=== PATIENT | female | born 1935 | race Caucasian/White ===

== ENCOUNTER → 2016-08-24 | Outpatient (CLI) | payer OTHER ==
[~2016-08-24] VITALS: Ht 162.6 cm; Wt 68.8 kg
[~2016-08-24] MED LIST: ASPIR 8181 MG PO; BENADRYL25 MG PO; COCONUT OIL100 GM PO; COUMADIN 5 MG TA5 M1 PO; DEPAKOTE ER500 MG PO; FISH OIL 1,0001 EAC8 PO; FLEX ABILITY C1 EACH PO; FOLIC ACID XTR0.8 MG PO; HYDREA 500 MG500 M1 PO; HYDROCODON-ACE1 EA14 PO; LEVOTHROID50 MCG PO; MOBIC15 MG PO; MULTIVITAMINS1 EAC7 PO; SIMVASTATIN20 MG PO; VITAMIN B-1000 MCG/2 PO; VITAMIN E1000 UNI3 PO; VOLTAREN GEL 1100 G2 TOP
--- NOTE | ~2016-08-24 | HPC ---
[facility] [place] [address] PAIN MANAGEMENT CONSULTATION Name: TORRESFREEDOM Pranav Room #: [facility] [id number] Admission: 08/24/16 Attend Phys: Binh Rodríguez DO Discharge: Date of : 33 Report #: [id number] THIS REPORT FOR: //name// CC: Allyn Rodríguez SUBJECTIVE: The patient is a pleasant 80-year-old female, prior seen in the pain clinic was 07/21/2016. She had been prior treated for lumbar radiculopathy and bilateral knee DJD. Epidural injection in the distant past afforded great relief. Last visit, she is having primary pain in her knees, and I ordered x-rays, these were accomplished 07/21/2016. We reviewed the x-rays with the patient today noting advanced degenerative arthrosis in the medial and patellofemoral compartments of both knees. The patient did note pain is problematic, interferes with function throughout the day. It is exacerbated with any standing, walking, or weightbearing. He rates the pain as 5/10 at present. PHYSICAL EXAMINATION: No ballottable edema. There is crepitance with patellar deviation. Ligaments are intact. ASSESSMENT: Symptomatic degenerative joint disease, bilateral knees. History of lumbar radiculopathy and thrombocytopenia. RECOMMENDATIONS: After discussion, the patient is able to electively move forward with right knee steroid injection under fluoroscopy. We will see her next week for a left knee injection. If this does not afford adequate relief, we talked about Synvisc injection. Last, we can consider total knee arthroplasty if indicated. ASSESSMENT: Degenerative joint disease, right knee (osteoarthritis). PROCEDURE NOTE: After written informed consent was obtained, the patient taken to the fluoroscopy suite, placed in supine position. After sterile prep, skin wheal with Xylocaine was raised from the superior lateral trajectory at the patella. A 20-gauge Angiocath was easily inserted under patella into the knee joint. Negative aspiration was accomplished. Then, 2 mL of 0.5% preservative-free bupivacaine plus 40 mg of triamcinolone was injected. Angiocath was removed. The area was cleansed. Band-Aids applied. The patient monitored for an appropriate period of time, told to use ice to the area today, told to watch out for signs of infection including swelling, pain and systemic symptoms such as fever, chills, etc. Follow up in one week for reevaluation. <ELECTRONICALLY SIGNED> By: Binh Rodríguez DO 08/28/16 0917 1614 0126 Binh Rodríguez DO /nt
[2016-08-24 12:42] VITALS: BP 150/69
== END | disposition home or self-care (01) ==
LOC: PAIN 08-04 12:18
DX: M17.0 Bilateral primary osteoarthritis of knee (principal); M54.16 Radiculopathy, lumbar region; D69.6 Thrombocytopenia, unspecified

== ENCOUNTER → 2016-09-07 | Outpatient (CLI) | payer OTHER ==
[~2016-09-07] VITALS: Ht 162.6 cm; Wt 68.9 kg
--- NOTE | ~2016-09-07 | O ---
[facility] [place] [address] OPERATIVE REPORT Name: BRIANFREEDOM Pranav Room #: REG [facility]#: [id number] Admission: 09/07/16 Attend Phys: Binh Rodríguez DO Discharge: Date of : 33 Report #: [id number] THIS REPORT FOR: //name// CC: Allyn Rodríguez DATE OF SERVICE: 09/07/2016 NAME OF THE PROCEDURE: Left knee injection under fluoroscopy. INDICATION: DJD, left knee DESCRIPTION OF PROCEDURE: After written informed consent was obtained, the patient was taken to the fluoroscopy suite and placed in prone position. After sterile prep and drape, skin wheal was raised. A 20-gauge Angiocath needle was placed from a superolateral point of entry in the inferomedial trajectory under the patella. The catheter was easily advanced with the needle withdrawn. Once into the joint, negative aspiration was accomplished. A 40 mg of triamcinolone plus 2 mL of 0.5% preservative-free bupivacaine was injected in the joint. Needle was removed, area was cleansed and Band-Aid was applied. The patient noted significant improvement of pain; in fact, noted pain was absent on discharge. Told to use ice to the knee today when the local resolves. Watch for signs of infection including swelling, hyperpyrexia, general malaise. Follow as needed. Fluoroscopy time was 10 seconds. <ELECTRONICALLY SIGNED> By: Binh Rodríguez DO 09/11/16 1228 1551 0802 Binh Rodríguez DO /pratibha
--- NOTE | ~2016-09-07 | HPC ---
[facility] [place] [address] PAIN MANAGEMENT CONSULTATION Name: BRIANFREEDOM Pranav [id number] Admission: 09/07/16 Attend Phys: Binh Rodríguez DO Discharge: Date of : 33 Report #: [id number] THIS REPORT FOR: //name// CC: Allyn Rodríguez DATE OF SERVICE: 09/07/2016 HISTORY OF PRESENT ILLNESS: The patient is an 80-year-old female, prior seen in pain clinic on 08/24/2016, did a right knee steroid injection at that time, diagnosed with bilateral knee DJD, history of thrombocytopenia, SI joint dysfunction and lumbar radiculopathy. Returns to pain clinic today noting that the right knee steroid injection helped dramatically; in fact, her pain now is primarily in the left knee. Does have some right SI mediated pain. PHYSICAL EXAMINATION: GENERAL: Shows an 80-year-old female. VITAL SIGNS: BMI is 26.1 kg/m2. Blood pressure is generally within normal limits, 161/69; pulse 92; respirations are 16. MUSCULOSKELETAL: Rises from chair using armrest. Modestly antalgic gait, diffuse tenderness across the right SI area with a positive Jhony test on this side. Left knee is the primary pain generator which she rates as 3/10 at present. Standing too long does exacerbate pain. There is no ballottable edema here. The ligaments are intact. ASSESSMENT: Degenerative joint disease, bilateral knees, status post right knee steroid injection with significant improvement of baseline pain; history of lumbar radiculopathy, component of right sacroiliac joint mediated pain. RECOMMENDATIONS: 1. Left knee steroid injection under fluoroscopy today. 2. Continue exercise and core strengthening. 3. Continue Voltaren gel topically. 4. Followup simply as needed. <ELECTRONICALLY SIGNED> By: Binh Rodríguez DO 09/11/16 1228 1551 0230 Binh Rodríguez DO /nt
[2016-09-07 12:55] VITALS: BP 161/69
== END | disposition home or self-care (01) ==
LOC: PAIN 07:15
DX: M17.0 Bilateral primary osteoarthritis of knee (principal); M54.16 Radiculopathy, lumbar region; M53.3 Sacrococcygeal disorders, not elsewhere classified

== ENCOUNTER → 2017-10-04 | Outpatient (CLI) | payer OTHER ==
[~2017-10-04] MED LIST changes: +ELIQUIS5 MG PO; -LEVOTHROID50 MCG PO; +LEVOTHYROXINE50 MCG PO
[2017-10-04 10:26] LABS: CREATININE 1.4 mg/dL (0.6-1.0)
== END ==
LOC: LABMALL 09:52
PROVIDERS: Nurse Practitioner
DX: K57.30 Diverticulosis of large intestine without perforation or abscess without bleeding (principal); K80.20 Calculus of gallbladder without cholecystitis without obstruction; I70.0 Atherosclerosis of aorta; R19.04 Left lower quadrant abdominal swelling, mass and lump

== ENCOUNTER 2018-05-17 18:56 | Inpatient (IN) | payer OTHER ==
[~2018-05-17] VITALS: Ht 162.6 cm; Wt 65.8 kg
--- NOTE | ~2018-05-17 | EKG ---
[address] [place] [address] ELECTROCARDIOGRAM REPORT Name: FREEDOM TORRES Room #: 214-P ADM IN M.R.#: [id number] Admission: 05/17/18 Attend Phys: Maribell Barber Discharge: Date of : 33 Report #: [id number] THIS REPORT FOR: //name// [facility] ED Test Date: 2018-05-17 Test Time: 19:20:33 Pat Name: FREEDOM TORRES Department: Room: 214 Gender: F [employer] Interpretive Ranger: KATJA : 1935 Requested By: Edita Bojorquez Order Number: [id number] MD: Mike Liu Measurements Intervals [place] Rate: 99 P: 50 [place]: 185 QRS: 11 QRSD: 86 T: 45 QT: 360 QTc: 462 Interpretive Statements Sinus rhythm Abnormal R-wave progression, early transition Compared to ECG 04/05/2012 15:20:04 No significant changes Electronically Signed On 05-18-2018 10:10:56 CDT by Mike Liu [email or web address] <ELECTRONICALLY SIGNED> By: Mike Liu MD, [facility] 05/18/18 1010 19 19 Mike Liu MD, [facility] /EPI
--- NOTE | ~2018-05-17 | HC ---
[facility] [place] [address] CONSULTATION Name: FREEDOM TORRES Room #: 214-P [facility] IN M.R.#: [id number] Admission: 05/17/18 Attend Phys: Maribell Barber Discharge: Date of : 33 Report #: [id number] THIS REPORT FOR: //name// CC: Maribell Fink MD REASON FOR CONSULTATION: History of essential thrombocythemia, history of DVT, history of PE, new PE and probable new DVT. HISTORY OF PRESENT ILLNESS: The patient is an 82-year-old female who I have seen for a number of years with history of essential thrombocythemia. She is poorly controlled with a platelet count usually in the 600,000-700,000 range, part of this is because of when her Hydrea is increased it pushes her hemoglobin down and her co-pays for Agrylin were too high, so the decision was made to use the Hydrea as best we could and also see if she tolerates anemia. Normally, her hemoglobin runs 5-8 range with an MCV probably around 120 due to this. She comes in and she really does not remember much about the last couple of days. Her daughter reports that when she was in our office with the nurse practitioner 2 weeks ago, she was doing fine, was able to walk from the parking lot inside, but for the last 3-4 days she was having more shortness of breath with minimal walking. She had a V/Q scan here. The ventilation was poorly visualized, but perfusion shows typical peripheral wedge-shaped things worrisome for clots. An ultrasound reported by the nurses shows clots, but there is not a written report yet. The daughter and the patient both say that the patient has not had any other trouble with recent headaches, any blood in her urine or stool, any diarrhea, any new arm or leg swelling, or feeling poorly, or poor appetite. The patient wishes to go home and keeps repeating this, though when talked about it, she is willing to stay around till she feels better. PAST MEDICAL HISTORY: Notable for the history of essential thrombocythemia for a number of years, is poorly controlled with Hydrea 500 mg pills taking 10 weekly, usually as 1 daily with an extra pill on each Sunday, Sunday and Sunday. She also has a history of hypothyroidism, hyperlipidemia, chronic kidney disease, reflux, glaucoma, seizure disorder, longstanding. She has also had past clots. Her daughter seems to recall that she has had two clots, one maybe in the 1980s, another in early and the PE, she thinks, 2011. SOCIAL HISTORY: Is a nonsmoker, nondrinker. She worked in [employer] in the past. FAMILY HISTORY: Father in his 70s, mother at 94. PHYSICAL EXAMINATION: GENERAL: The patient appears her stated age. VITAL SIGNS: Height is 5 feet 4 inches, which is 162.6 cm. Weight is [address] [place] [address] CONSULTATION Name: TORRESFREEDOM M Room #: 214-P [facility] IN M.R.#: [id number] Admission: 05/17/18 Attend Phys: Maribell Barber Discharge: Date of : 33 Report #: [id number] pounds, which is 65.8 kg. Blood pressure is 136/60, O2 sats 93%, originally on this admit was 89%, respirations 20, pulse 81, temperature 98.1. MOOD: She is pleasant and keeps asking when she can go home. NEUROLOGIC: Speech pattern is normal. She is moving all extremities. Face is symmetrical. Her thought content is not good. Her memory is poor and she keeps asking multiple times why she cannot go home. HEENT: Oropharynx clear without petechiae or leukoplakia. LUNGS: Appear mostly clear. There is soft rhonchi in the bottom that clear with deep breath. HEART: Appears regular rate. LYMPHATICS: No enlarged lymph nodes in the supraclavicular, cervical, axillary or inguinal region. ABDOMEN: Slightly obese, nontender. No masses. EXTREMITIES: Without definite edema, no clubbing or cyanosis. LABORATORY DATA: Include a BUN of 34, creatinine of 1.5, glucose normal. Transaminases normal. Calcium slightly high at 10.7, repeat is 9.9, ALT normal, EGFR around 29. Coags, initial INR 1, aPTT 19.8. White count on admission 6.3, hemoglobin 8.9 range, MCV 126, RDW 17.8, differential fairly normal, platelets were 712 yesterday, 657 today. TSH recently slightly elevated at 7.552. Folate, B12, retic, erythropoietin ordered and pending. RADIOLOGIC DATA: Radiologic studies this admit include ultrasound of the legs ordered, but not resulted. V/Q scan showed the wedge-shaped perfusion defects with multiple peripheral wedge-shaped and segmental perfusion defects noted, nondiagnostic without ventilation changes. Chest x-ray was nonacute. Note that she had a CT abdomen and pelvis 09/2017, which did not reveal any specific abnormalities. There is note also in the past history 03/2012 with a V/Q with high probability. MEDICATIONS: Currently include hydroxyurea, which I added; folic acid 400 mcg daily, MiraLax 17 grams daily, Zofran p.r.n., heparin drip per protocol, other medications yet to be ordered. ASSESSMENT AND PLAN: 1. Essential thrombocythemia. We will continue Hydrea 500 mg 10 pills weekly, 500 daily and 500 extra on Sunday, Sunday and Sunday. As above, poorly controlled because of inability to cover Agrylin. We will continue same for now. 2. Also should probably continue aspirin daily. 3. Macrocytic anemia is stable, probably related to hydroxyurea. We will restart folic acid. We will also check B12 and iron to make sure those are not also contributing to her anemia. Doubt that she has gastrointestinal bleeding as her hemoglobin has been stable. 4. History of deep vein thrombosis and pulmonary embolism, now with probable pulmonary embolism and probable deep venous thrombosis. I agree with heparin [address] [address] CONSULTATION Name: FREEDOM TORRES Room #: 214-P ADM IN M.R.#: [id number] Admission: 05/17/18 Attend Phys: Maribell Barber Discharge: Date of : 33 Report #: [id number] drip initially and if no bleeding, consider oral agent. We will ask daughter to check with pharmacy to see if any of the novel oral agents are covered as there may be some insurance issues. On the other hand, Coumadin may be difficult for compliance reasons as far as blood testing and diet, etc. 5. 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 Limit activity. 6. Dementia. Nursing aware and is treating the patient and reacting with her appropriately. Daughter present. 7. Hypothyroid. Defer to others. 8. Chronic kidney disease. We will monitor doses of drugs and limit contrast and other insults. 9. Seizure disorder. Will be back on anti-seizure medication. 10. Gastroesophageal reflux disease. Will most likely be on acid anthony. <ELECTRONICALLY SIGNED> By: Jayden Perez MD 05/19/18 0826 0819 1339 Jayden Perez MD /nt
[~2018-05-17 18:56] MED LIST changes: -ELIQUIS5 MG PO
[2018-05-17 19:12] VITALS: BP 183/69
[2018-05-17 19:39] LABS: HEMATOCRIT 26.5 % (37.0-47.0); HEMOGLOBIN 8.9 gm/dL (12.0-15.0); MCH 42.2 pg (26.0-34.0); MCHC 33.5 g/dL (28.0-37.0); PLATELET COUNT 712 thou/uL (150-400); RBC 2.11 mil/uL (4.20-5.00); RDW 18.2 % (10.5-14.5); WBC 6.3 thou/uL (4.0-11.0)
[2018-05-17 19:49] LABS: ANION GAP 8 mmol/L (7-16); BUN 38 mg/dL (7-18); CALCIUM 10.7 mg/dL (8.5-10.1); CHLORIDE 102 mmol/L (98-107); CO2 25 mmol/L (21-32); CREATININE 1.7 mg/dL (0.6-1.0); GLUCOSE 115 mg/dL (74-106); POTASSIUM 4.4 mmol/L (3.5-5.1); SODIUM 135 mmol/L (136-145)
[2018-05-17 20:05] LABS: ALBUMIN 3.8 g/dL (3.4-5.0); SGOT 21 U/L (15-37); SGPT 12 U/L (30-65); TOTAL BILIRUBIN 0.3 mg/dL (<0.1-1.0); TOTAL PROTEIN 8.2 g/dL (6.4-8.2); TROPONIN-I <0.06 ng/mL (<0.06)
[2018-05-17 20:14] LABS: APTT 19.8 Seconds (24.5-32.8); PROTIME 10.5 Seconds (9.3-11.4)
[2018-05-17 20:32] LABS: ABSOLUTE NEUTROPHILS 3.8 thou/uL (1.4-8.2); ANISOCYTOSIS 2+
[2018-05-17 23:22] VITALS: BP 195/85
[2018-05-17 23:44] VITALS: BP 162/76
[2018-05-18 00:06] VITALS: BP 168/75
[2018-05-18] MEDS ORDERED: HYDREA 500 MG500 M1 PO (00:22)
[2018-05-18 02:30] LABS: HEMATOCRIT 26.2 % (37.0-47.0); HEMOGLOBIN 8.8 gm/dL (12.0-15.0); MCHC 33.6 g/dL (28.0-37.0); MCV 125.3 fL (80.0-100.0); RBC 2.09 mil/uL (4.20-5.00); RDW 17.8 % (10.5-14.5); WBC 5.8 thou/uL (4.0-11.0)
[2018-05-18 02:45] LABS: CALCIUM 9.9 mg/dL (8.5-10.1); CREATININE 1.5 mg/dL (0.6-1.0)
[2018-05-18 04:02] VITALS: BP 136/60
[2018-05-18 05:21] LABS: TSH 7.552 uIU/mL (0.358-3.740)
[2018-05-18 08:37] VITALS: BP 156/59
[2018-05-18 11:37] LABS: ABSOLUTE RETIC COUNT 0.0315 10^6/uL; OBSERVED RETIC COUNT 1.45 % (0.6-2.6)
[2018-05-18 11:42] LABS: % SATURATION 25 % (20-39); IRON 60 ug/dL (50-170); TIBC 244 ug/dL (250-450)
[2018-05-18 12:41] LABS: FERRITIN 105 ng/mL (8-252)
[2018-05-18 13:10] LABS: FOLIC ACID > 40.0 ng/mL (8.6-58.9)
[2018-05-18 13:18] VITALS: BP 148/62
[2018-05-18 15:26] VITALS: BP 152/62
[2018-05-18 19:15] VITALS: BP 164/66
[2018-05-19 03:21] VITALS: BP 146/64
[2018-05-19 07:42] VITALS: BP 141/64
[2018-05-19 11:14] VITALS: BP 148/59
[2018-05-19 15:09] VITALS: BP 138/79
[2018-05-19 21:45] VITALS: BP 154/80
[2018-05-20 01:36] LABS: HEMOGLOBIN 8.2 gm/dL (12.0-15.0); MCH 40.7 pg (26.0-34.0); MCHC 32.6 g/dL (28.0-37.0); MCV 124.7 fL (80.0-100.0); RBC 2.01 mil/uL (4.20-5.00); RDW 17.2 % (10.5-14.5); WBC 4.7 thou/uL (4.0-11.0)
[2018-05-20 04:34] VITALS: BP 144/65
[2018-05-20 07:50] VITALS: BP 140/49
[2018-05-20 13:00] VITALS: BP 143/53
[2018-05-20] MEDS ORDERED: ELIQUIS5 MG PO (14:19)
[2018-05-20 14:39] VITALS: BP 143/53
== END 2018-05-20 15:14 | disposition home or self-care (01) | DRG 299 ==
LOC: ER 18:56 → EROBS 22:17 → 2N 22:17 → ENTRNSPT 05-20 14:51 → EDTRNSPTSTS 05-20 15:03 → 2N 05-20 15:14
PROVIDERS: Internal Medicine Hematology & Oncology; Nurse Practitioner Family; Student in an Organized Health Care Education/Training Program
PROC: 0HBRXZZ Excision of Toe Nail, External Approach (ICD-10-PCS; principal; 2018-05-20)
DX: I82.431 Acute embolism and thrombosis of right popliteal vein (principal); I26.99 Other pulmonary embolism without acute cor pulmonale; M19.90 Unspecified osteoarthritis, unspecified site; D53.9 Nutritional anemia, unspecified; E03.9 Hypothyroidism, unspecified; D47.3 Essential (hemorrhagic) thrombocythemia; R09.02 Hypoxemia; E78.5 Hyperlipidemia, unspecified; Z66 Do not resuscitate; K21.9 Gastro-esophageal reflux disease without esophagitis; N18.9 Chronic kidney disease, unspecified; N31.9 Neuromuscular dysfunction of bladder, unspecified; B35.1 Tinea unguium; G40.909 Epilepsy, unspecified, not intractable, without status epilepticus; F03.90 Unspecified dementia, unspecified severity, without behavioral disturbance, psychotic disturbance, mood disturbance, and anxiety; Z98.49 Cataract extraction status, unspecified eye; Z79.82 Long term (current) use of aspirin; Z79.899 Other long term (current) drug therapy; Z88.0 Allergy status to penicillin
CPT/HCPCS: 10081

== ENCOUNTER → 2018-06-10 | Outpatient (CLI) | payer OTHER ==
[~2018-06-10] MED LIST changes: +ELIQUIS5 MG PO
[2018-06-10 09:58] VITALS: BP 141/47; BP 145/56
== END ==
LOC: OPONC 06:24
DX: D47.3 Essential (hemorrhagic) thrombocythemia (principal)
CPT/HCPCS: 91030

== ENCOUNTER → 2018-07-22 | Outpatient (CLI) | payer OTHER ==
[2018-07-22 08:30] VITALS: BP 155/53
[2018-07-22 10:01] VITALS: BP 134/57; BP 158/57
== END ==
LOC: OPONC 06:32
DX: D47.3 Essential (hemorrhagic) thrombocythemia (principal)
CPT/HCPCS: 91030